=== PATIENT | male | born 1960 | race Two or more races ===

== ENCOUNTER 2022-03-02 10:26 | Emergency (ER) | payer OTHER ==
[~2022-03-02] VITALS: Ht 167.6 cm; Wt 74.8 kg
[2022-03-02] MEDS ORDERED: CLEOCIN HCL300 MG PO (11:49)
[2022-03-02] MEDS ORDERED: KETO10TA2 PO (11:49)
[2022-03-02] MEDS ORDERED: INTESTINEX680 M1 PO (11:49)
== END 2022-03-02 12:09 ==
LOC: ER 10:26
DX: K08.89 Other specified disorders of teeth and supporting structures (principal); K04.7 Periapical abscess without sinus